=== PATIENT | female | born 1935 | race Caucasian/White ===

== ENCOUNTER → 2016-12-02 | Outpatient (CLI) | payer MEDICARE, OTHER | LOC: US 13:30 → CT 14:00 | DX: R42 Dizziness and giddiness (principal); R55 Syncope and collapse; I65.23 Occlusion and stenosis of bilateral carotid arteries | CPT/HCPCS: 70450; 93880 ==

== ENCOUNTER → 2021-03-12 | Outpatient (CLI) | payer MEDICARE, OTHER | LOC: EXRD 14:11 | DX: R60.9 Edema, unspecified (principal) | CPT/HCPCS: 93925; 93970 ==